=== PATIENT | male | born 1980 | race Hispanic/Latino ===

== ENCOUNTER 2017-12-17 08:33 | Emergency (ER) | payer BC ==
[2017-12-17 09:00] VITALS: RESP 18; TEMP 98.1
[2017-12-17 09:04] VITALS: O2SAT 98
--- NOTE | 2017-12-17 09:16 | ED PDOC ---
Arrival/HPI - General Chief Complaint: ENT Problem Time Seen by Provider: 12/17/17 08:56 Historian: Patient - History of Present Illness Narrative History of Present Illness (Text): 12/17/17 09:01 A 37 year old male, with no significant past medical history, presents to the emergency department complaining of sore throat and difficulty swallowing starting this morning. Patient reports obtaining an insect bite to the right shoulder 3 weeks ago, and believes bite is related to symptoms. Patient denies any cough, congestion, fever, chills, URI symptoms, or any other complaints at this time. Denies any history of smoking or substance abuse, however admits to being a heavy drinker. No PMD Associated Symptoms (Text): 12/17/17 09:28 Sore throat and dysphagia beginning this morning. No cough congestion or URI. No fever or chills. He was bitten by an insect 3 weeks ago on his right shoulder. There are no skin findings. He believes that his sore throat and dysphagia is related to the insect bite. Past Medical History - Provider Review Nursing Documentation Reviewed: Yes - Infectious Disease Hx of Infectious Diseases: None - Psychiatric Hx Substance Use: No - Anesthesia Hx Anesthesia: No Family/Social History - Physician Review Nursing Documentation Reviewed: Yes Family/Social History: No Known Family HX Smoking Status: Never Smoked Hx Alcohol Use: Yes Frequency of alcohol use: Few days per week Hx Substance Use: No Allergies/Home Meds Allergies/Adverse Reactions: Allergies No Known Allergies Allergy (Verified 12/17/17 08:58) Home Medications: Home Meds Medication Instructions Recorded Confirmed No Known Home Med 12/17/17 12/17/17 Review of Systems - Physician Review All systems were reviewed & negative as marked: Yes - Review of Systems Constitutional: absent: Fevers, Night Sweats ENT: Sore Throat, Other (diifculty swallowing). absent: Sinus Congestion Respiratory: absent: SOB, Cough, Sputum, Wheezing Cardiovascular: absent: Chest Pain, Palpitations Gastrointestinal: absent: Abdominal Pain, Diarrhea, Nausea, Vomiting Neurological: absent: Headache, Dizziness Physical Exam Vital Signs Reviewed: Yes Vital Signs Temp Pulse Resp BP Pulse Ox 12/17/17 08:55 98.1 F 88 18 121/83 98 Temperature: Afebrile Blood Pressure: Normal Pulse: Regular Respiratory Rate: Normal Appearance: Positive for: Well-Appearing, Non-Toxic, Comfortable Pain Distress: None Mental Status: Positive for: Alert and Oriented X 3 - Systems Exam Head: Present: Atraumatic, Normocephalic Pupils: Present: PERRL Extroacular Muscles: Present: EOMI Conjunctiva: Present: Normal Ears: Present: Normal Mouth: Present: Moist Mucous Membranes Pharnyx: Present: ERYTHEMA, Other (mild pharyngeal injection). No: EXUDATE, TONSILS ENLARGED, Peritonsilar Swelling, Uvular Deviation, Soft Palate/Uvular Edema Respiratory/Chest: Present: Clear to Auscultation, Good Air Exchange. No: Respiratory Distress, Accessory Muscle Use Cardiovascular: Present: Regular Rate and Rhythm, Normal S1, S2. No: Murmurs Abdomen: No: Tenderness, Distention, Peritoneal Signs Upper Extremity: Present: Normal Inspection. No: Cyanosis, Edema Lower Extremity: Present: Normal Inspection. No: Edema Neurological: Present: GCS=15, CN II-XII Intact, Speech Normal Skin: Present: Warm, Dry, Normal Color. No: Rashes Psychiatric: Present: Alert, Oriented x 3, Normal Insight, Normal Concentration Medical Decision Making ED Course and Treatment: 12/17/17 09:04 Impression: 37 year old male with sore throat and difficulty swallowing. Physical exam shows mild pharyngeal injection, no exudates, no tonsilar perforation, no peritonsallar mass, normal uvula; rest of examination is normal. Plan: -- Rapid Strep group A Antigen -- Reassess and disposition Progress Notes: 12/17/17 10:16 Rapid strep is negative. Patient will be treated symptomatically. - Lab Interpretations Lab Results: Lab Results 12/17/17 09:40: Grp A Beta Strep Ag Negative - Scribe Statement The provider has reviewed the documentation as recorded by the Yumi Ramos Provider Scribe Attestation: All medical record entries made by the Christianibolivia were at my direction and personally dictated by me. I have reviewed the chart and agree that the record accurately reflects my personal performance of the history, physical exam, medical decision making, and the department course for this patient. I have also personally directed, reviewed, and agree with the discharge instructions and disposition. Disposition/Present on Arrival - Present on Arrival Any Indicators Present on Arrival: No History of DVT/PE: No History of Uncontrolled Diabetes: No Urinary Catheter: No History of Decub. Ulcer: No History Surgical Site Infection Following: None - Disposition Have Diagnosis and Disposition been Completed?: Yes Diagnosis: Pharyngitis, Dysphagia Disposition: HOME/ ROUTINE Disposition Time: 10:16 Patient Plan: Discharge Condition: GOOD Discharge Instructions (ExitCare): Dysphagia, Viral Pharyngitis Additional Instructions: Symptomatic treatment. Tylenol or Advil as directed on bottle as needed. Cepacol or Cepastat as directed on bottle as needed. Benadryl [id number] as directed on bottle. Follow-up with PMD. Follow up in ER as needed. Forms: [employer] (Yoruba)
[2017-12-17 10:23] VITALS: BP 124/78; PULSE 72
== END 2017-12-17 10:22 | disposition home or self-care (01) ==
LOC: ED 08:33
DX: J02.9 Acute pharyngitis, unspecified (principal); R13.10 Dysphagia, unspecified